=== PATIENT | male | born 1950 | race Caucasian/White ===

== ENCOUNTER 2022-08-19 11:19 | Outpatient (CLI) | payer MEDICARE, OTHER | END 2022-08-19 11:20 | disposition home or self-care (01) | LOC: SCSCT 11:19 | PROVIDERS: ATTEND Specialist | DX: M51.17 Intervertebral disc disorders with radiculopathy, lumbosacral region (principal); M96.1 Postlaminectomy syndrome, not elsewhere classified; M47.816 Spondylosis without myelopathy or radiculopathy, lumbar region; M48.061 Spinal stenosis, lumbar region without neurogenic claudication; Z98.1 Arthrodesis status | CPT/HCPCS: 72131 ==